=== PATIENT | male | born 1995 | race Caucasian/White ===

== ENCOUNTER 2020-04-06 13:33 | Emergency (ER) | payer OTHER, SELFPAY ==
[2020-04-06 13:34] VITALS: BP 127/64; PULSE 72; RESP 16; TEMP 36.6; O2SAT 99; BMI 31.9
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
[2020-04-06] MEDS: Diphth,Pertuss(Acell),Tet Vac 0.5 ML Vial IM (14:52)
[2020-04-06 14:53] VITALS: BP 120/71; PULSE 66; RESP 17
== END 2020-04-06 15:02 | disposition home or self-care (01) ==
PROVIDERS: Emergency Provider Emergency Medicine
DX: S60.012A Contusion of left thumb without damage to nail, initial encounter (principal); V89.2XXA Person injured in unspecified motor-vehicle accident, traffic, initial encounter; W22.11XA Striking against or struck by driver side automobile airbag, initial encounter; Y93.9 Activity, unspecified; Y92.9 Unspecified place or not applicable
CPT/HCPCS: 73130; 90471; 90715; 99282